=== PATIENT | female | born 1950 | race Caucasian/White ===

== ENCOUNTER 2021-08-17 16:10 | Emergency (ER) | payer OTHER ==
[2021-08-17 16:44] LABS: HEMOGLOBIN 14.2 gm/dl (12.3-15.3); RED BLOOD COUNT 4.55 M/UL (4.00-5.10); WHITE BLOOD COUNT 8.9 K/UL (4.5-11.0)
[2021-08-17 17:07] LABS: BUN/CREATININE RATIO 31 (0-10)
== END 2021-08-17 20:05 | disposition home or self-care (01) ==
LOC: ER1 16:10
PROVIDERS: Emergency Medicine
DX: R07.2 Precordial pain (principal); M54.6 Pain in thoracic spine; E78.5 Hyperlipidemia, unspecified; Z88.7 Allergy status to serum and vaccine
CPT/HCPCS: 71045; 80053; 82550; 82553; 84484; 85025; 85379; 93005; 99285